=== PATIENT | female | born 1965 | race Caucasian/White ===

== ENCOUNTER 2019-12-05 11:35 | Emergency (ER) | payer MEDICARE ==
[2019-12-05] MEDS ORDERED: ACETAMINOPHEN 325 MG TABLET PO ONE ×2 (12:56→15:15)
--- NOTE | 2019-12-05 12:56 | ER Document Report ---
ED Medical Screen (RME) - General Chief Complaint: Abscess Stated Complaint: BOILS UNDER LEFT ARM Time Seen by Provider: 12/05/19 12:55 Mode of Arrival: Ambulatory Information source: Patient Notes: 54-year-old female presented to ED for abscesses under the left arm. She states she had one abscess about a month ago and she popped it now she has 3-4. She states the pain is severe when she moves but if she is hold still there is no pain. She is alert oriented respirations regular and unlabored speaking full sentences. She does have a history of bradycardia, arrhythmia, possible anxiety , gallbladder removed and a stent removed from her pancreas. She does smoke a pack a day no drink no drugs. I have greeted and performed a rapid initial assessment of this patient. A comprehensive ED assessment and evaluation of the patient, analysis of test results and completion of medical decision making process will be conducted by an additional ED providers. Physical Exam - Vital signs Vitals: Temp Pulse Resp BP Pulse Ox 98.7 F 70 16 133/55 H 98 12/05/19 12:12/05/19 12:12/05/19 12:12/05/19 12:12/05/19 12:09 Course - Vital Signs Vital signs: Temp Pulse Resp BP Pulse Ox 98.7 F 70 16 133/55 H 98 12/05/19 12:12/05/19 12:12/05/19 12:12/05/19 12:12/05/19 12:09
--- NOTE | 2019-12-05 15:35 | ER Document Report ---
ED Skin Rash/Insect Bite/Abscs - General Chief Complaint: Abscess Stated Complaint: BOILS UNDER LEFT ARM Time Seen by Provider: 12/05/19 12:55 Primary Care Provider: HERNANDEZ BROOKS MD [ACTIVE STAFF] - Follow up in 3-5 days (Call for an outpatient follow-up appointment.) Mode of Arrival: Ambulatory Notes: 54-year-old female here visiting from [place] with a past medical history significant for hyperlipidemia, anxiety presents to the emergency room complaining of boils to her left axillary region for the past month. States she is tried to squeeze pus out of them and now she has 3 of them. No history of previous abscesses. Denies any fevers. Took ibuprofen earlier today with some relief. TRAVEL OUTSIDE OF THE [place] IN LAST 30 DAYS: No - Related Data Allergies/Adverse Reactions: codeine Allergy (Verified 12/05/19 12:58) hydrocodone Allergy (Verified 12/05/19 12:58) prednisone Allergy (Verified 12/05/19 12:58) Past Medical History - General Information source: Patient - Social History Smoking Status: Current Every Day Smoker Chew tobacco use (# tins/day): No Frequency of alcohol use: None Drug Abuse: None, Marijuana Family History: Reviewed & Not Pertinent Patient has homicidal ideation: No GI Medical History: Reports: Hx Ulcer Psychiatric Medical History: Reports: Hx Bipolar Disorder Past Surgical History: Reports: Hx Cholecystectomy, Hx Tonsillectomy, Hx Tubal Ligation Review of Systems - Review of Systems Constitutional: No symptoms reported Cardiovascular: No symptoms reported Respiratory: No symptoms reported Musculoskeletal: No symptoms reported Skin: Lumps Neurological/Psychological: No symptoms reported -: Yes All other systems reviewed and negative Physical Exam - Vital signs Vitals: Temp Pulse Resp BP Pulse Ox 98.7 F 70 16 133/55 H 98 12/05/19 12:09 12/05/19 12:09 12/05/19 12:09 12/05/19 12:12/05/19 12:09 - General General appearance: Appears well, Alert In distress: Mild - Respiratory Respiratory status: No respiratory distress Chest status: Nontender Breath sounds: Normal Chest palpation: Normal - Cardiovascular Rhythm: Regular Heart sounds: Normal auscultation Murmur: No - Extremities General upper extremity: Tender - Left axillary region with several small nonfluctuant abscesses. There is one that is 1/4 cm in size that is actively draining purulent drainage. Warm and tender to palpation. No lymphadenopathy noted., Normal strength, Normal temperature - Neurological Neuro grossly intact: Yes Cognition: Normal Orientation: AAOx4 [place] Coma Scale Eye Opening: Spontaneous [place] Coma Scale Verbal: Oriented [place] Coma Scale Motor: Obeys Commands [place] Coma Scale Total: 15 Speech: Normal Motor strength normal: LUE, RUE, LLE, RLE Sensory: Normal - Skin Skin Temperature: Warm Skin Moisture: Dry Skin Color: Normal Skin irregularity: Abscess, Tender indurated area Location of irregularity: Other - Left axillary region with 3 small nonfluctuant, erythematous tender lesions that are noted. There is one that is 1/4 cm in size that is actively draining purulent drainage. Notes: There is no axillary lymphadenopathy noted Course - Re-evaluation Re-evalutation: 12/05/19 15:31 Reviewed diagnosis with patient. She is afebrile, nontoxic-appearing . Counseled that the abscesses are not drainable at this time. She was counseled on warm compresses 20 minutes 3 times a day. Antibiotics as prescribed. Outpatient follow-up with a general surgeon if symptoms are not improving in the next 2 to 3 days. On-call physician was provided. Patient was given strict return to the emergency room guidelines. Return for any new or worsening symptoms. All questions were answered. Patient verbalized understanding and agrees with plan of care. 12/05/19 15:34 - Vital Signs Vital signs: Temp Pulse Resp BP Pulse Ox 98.1 F 56 L 18 116/71 98 12/05/19 16:03 12/05/19 16:03 12/05/19 16:03 12/05/19 16:03 12/05/19 16:03 Discharge - Discharge Clinical Impression: Abscess of left axilla Condition: Stable Disposition: HOME, SELF-CARE Instructions: Trimethoprim-Sulfa ([facility]) Additional Instructions: You were seen for an abscess that did not require drainage. Use warm compresses 20 minutes 3 times a day. Please clean this area with soap and water twice daily and take antibiotics as prescribed. Outpatient follow-up with general surgery as discussed. Please return if you develop fever, vomiting, the pain at the site worsens, you notice spreading redness from the area, or you have any other symptoms that are concerning to you. Prescriptions: Sulfamethoxazole/Trimethoprim [Bactrim Ds Tablet] 1 tab PO BID 10 Days #20 tablet Referrals: HERNANDEZ BROOKS MD [ACTIVE STAFF] - Follow up in 3-5 days (Call for an outpatient follow-up appointment.)
[2019-12-05 16:04] VITALS: BP 116/71
== END 2019-12-05 16:04 | disposition home or self-care (01) ==
LOC: ER 11:35
DX: L02.412 Cutaneous abscess of left axilla (principal); F17.200 Nicotine dependence, unspecified, uncomplicated; Z88.6 Allergy status to analgesic agent; Z88.5 Allergy status to narcotic agent; Z88.8 Allergy status to other drugs, medicaments and biological substances
CPT/HCPCS: 99282; A9270